=== PATIENT | male | born 1995 | race African-American/Black ===

== ENCOUNTER 2022-03-01 22:53 | Emergency (ER) | payer OTHER, SELFPAY ==
[2022-03-01 23:51] VITALS: BP 126/76; PULSE 87; RESP 18; TEMP 38.1; O2SAT 99
[2022-03-02 01:47] VITALS: PULSE 87; RESP 16; O2SAT 97
[2022-03-02 02:02] VITALS: BP 126/80
--- NOTE | 2022-03-02 02:15 | ED.EXTPRO ---
HPI - Extremity Problem General Chief complaint: Extremity Problem,Nontraumatic Stated complaint: right arm wound Time Seen by Provider: 03/02/22 02:08 History of Present Illness HPI Narrative: 27-year-old male here for evaluation of a lesion to his right wrist that he first noticed about 2 days ago. Patient is unsure if he got bit by a spider, but first noticed a lesion on his wrist that has since grown. He also noted some red streaking up his arm that came on today which prompted his ED evaluation. Patient denies fevers at home but temperature noted to be 100.5 in triage. Denies any nausea, vomiting, diarrhea, constipation or weakness. Related Data Allergies Allergy/AdvReac Type Severity Reaction Status Date / Time No Known Allergies Allergy Verified 03/02/22 01:39 Review of Systems Review of Systems: Gen: Denies fevers or chills Eyes: Denies eye pain or visual change ENT: Denies congestion Respiratory: Denies shortness of breath or cough CV: Denies chest pain or palpitations GI: Reports abdominal pain nausea, emesis or diarrhea : denies burning, urgency, frequency or hematuria Musculoskeletal: Denies back pain or muscle pain Neuro: Denies numbness, tingling, weakness or focal weakness Skin: Reports right wrist lesion 10 point review of systems negative, other than as per history of present illness, past medical history and other positives and review of systems Exam Narrative: APPEARANCE: Well appearing, no pain in distress, well-nourished. Head: Normocephalic and atraumatic. EYES: PERRLA/EOMI, conjunctivae clear NOSE: No nasal drainage EARS: External ear normal in appearance THROAT: Oropharynx is clear. Mucous membranes are moist. NECK: Supple. No adenopathy, no masses. RESPIRATORY: Airway patent, respirations nonlabored. Clear to auscultation bilaterally, no rales, rhonchi, wheezing. CARDIOVASCULAR: Regular rate and rhythm without murmurs, rubs, or gallops. ABDOMINAL: Normoactive bowel sounds. Soft, nontender, nondistended. No rebound tenderness or guarding. MUSCULOSKELETAL: Extremities are warm and well-perfused. Moves all extremities well. No edema. NEURO: Normal speech. No focal neurologic deficits. SKIN: Patient has a 1 x 0.5 cm raised erythematous lesion to the right wrist with erythematous streaking up the arm just proximal to the AC joint. PSYCHIATRIC: Normal affect/mood. Course Vital Signs Vital signs: Vital Signs Temperature 100.5 F H 03/01/22 23:51 Pulse Rate 87 03/01/22 23:51 Respiratory Rate 18 03/01/22 23:51 Blood Pressure 126/76 03/01/22 23:51 Pulse Oximetry 99 03/01/22 23:51 Oxygen Delivery Room Air 03/01/22 23:51 Temperature 99.6 F 03/02/22 02:31 Pulse Rate 87 03/02/22 01:47 Respiratory Rate 16 03/02/22 01:47 Blood Pressure 126/80 03/02/22 02:02 Pulse Oximetry 97 03/02/22 01:47 Oxygen Delivery Room Air 03/01/22 23:51 MDM - Extremity (Nontraumatic) MDM Narrative Medical decision making narrative: 27-year-old male here for evaluation of a lesion to his right wrist with some streaking up the arm consistent with lymphangitis. He is nontoxic-appearing and denies any systemic symptoms though he was noted to have a temperature of 100.5 in triage, improved with Tylenol. His white count is normal, his lactic is normal, no signs of a severe infection. Considered cellulitis, lymphangitis, doubt sporotrichosis. The area of cellulitis was marked in the ED, patient instructed to return to the ED if this is getting worse or not improving with the oral antibiotics. Patient was given a gram of Ancef given IV and will be discharged home with oral antibiotics. He was given return precautions and he voiced understanding. Lab Data Result diagrams: 03/02/22 02:32 03/02/22 02:32 Labs: Lab Results 03/02/22 03/02/22 03/02/22 Range/Units 02:32 02:32 02:32 WBC 8.6 (4.5-10.0) K/mm3 RBC 4.79 (4.6-6.20) M/mm3 Hgb 14.4 (14.
[2022-03-02 02:31] VITALS: TEMP 37.6
[2022-03-02] MEDS: ACETAMINOPHEN 325 MG TABLET 650 MG PO (02:31)
[2022-03-02 02:38] LABS: Basophils Absolute Auto 0.1 K/mm3 (0.0-0.1); Basophils Percent Auto 0.6 % (0.2-1.2); Eosinophils Absolute Auto 0.1 K/mm3 (0-0.3); Eosinophils Percent Auto 0.9 % (0-4.4); Hematocrit 42.1 % (42.0-52.0); Hemoglobin 14.4 g/dL (14.0-18.0); Immature Granulocyte Absolute 0.03 K/mm3 (0.00-0.031); Immature Granulocyte Percent A 0.3 % (0-0.5); Lymphocytes Absolute Auto 1.51 K/mm3 (0.9-3.2); Lymphocytes Percent Auto 17.6 % (18.3-44.2); Mean Corpuscular HGB Conc 34.2 g/dl (32-36); Mean Corpuscular Hemoglobin 30.1 pg (26-34); Mean Corpuscular Volume 87.9 fl (80-100); Mean Platelet Volume 9.8 fl (7.4-10.4); Monocytes Absolute Auto 1.1 K/mm3 (0.1-0.6); Monocytes Percent Auto 12.2 % (2.6-8.5); Neutrophils Absolute Auto 5.9 K/mm3 (1.3-6.7); Neutrophils Percent Auto 68.4 % (45.5-73.1); Platelet Count Result 210 k/mm3 (150-375); Red Blood Count 4.79 M/mm3 (4.6-6.20); Red Cell Distribution Width 11.4 % (11.5-14.5); White Blood Count 8.6 K/mm3 (4.5-10.0)
[2022-03-02 02:50] LABS: Alanine Aminotransferase 33 U/L (6-50); Albumin Level 4.8 g/dL (3.5-5.1); Alkaline Phosphatase 63 U/L (38-126); Anion Gap 12 mmol/L (8-16); Aspartate Amino Transferase 32 U/L (17-59); Blood Urea Nitrogen 14 mg/dL (9-20); Calcium 9.3 mg/dL (8.4-10.2); Carbon Dioxide 24 mmol/L (22-30); Chloride 102 mmol/L (98-107); Estimated CRCL calculation 76 ml/min; Estimated Glomerular Filt Rate > 60; Glucose 113 mg/dL (65-110); Lactic Acid Reflex 0.9 mmol/L (0.7-2.0); Potassium 3.6 mmol/L (3.4-5.0); Sodium 138 mmol/L (137-145)
[2022-03-02 04:10] VITALS: BP 103/56; PULSE 61; RESP 15; O2SAT 100
== END 2022-03-02 04:14 | disposition home or self-care (01) ==
PROVIDERS: Physician Assistant; Emergency Provider Emergency Medicine
DX: L03.113 Cellulitis of right upper limb (principal)
CPT/HCPCS: 36415; 80053; 83605; 85025; 96365; 99284; A9270; J0690

== ENCOUNTER 2022-07-06 18:42 | Emergency (ER) | payer OTHER, SELFPAY ==
[2022-07-06 18:47] VITALS: BP 126/69; PULSE 80; RESP 17; TEMP 37.7; O2SAT 98
--- NOTE | 2022-07-06 19:55 | ED.GENADULT ---
HPI - General Adult General Chief complaint: Skin/Abscess/Foreign Body Stated complaint: rash on arm Time Seen by Provider: 07/06/22 19:19 History of Present Illness HPI narrative: 27-year-old male here for evaluation of a rash to his right wrist noticed yesterday. States that the lesion came on without obvious triggers and has since spread proximally. He denies any soaps, medications, detergents. He was seen here in February for identical signs and symptoms and was treated for cellulitis with improvement of his symptoms. He denies any fevers or chills, nausea or vomiting or systemic symptoms. Related Data Allergies Allergy/AdvReac Type Severity Reaction Status Date / Time No Known Allergies Allergy Verified 03/02/22 01:39 Review of Systems Review of Systems: Gen.: Denies fevers or chills Eyes: Denies eye pain or visual change ENT: Denies congestion Respiratory: Denies shortness of breath or cough CV: Denies chest pain or palpitations GI: Denies abdominal pain nausea, emesis or diarrhea denies burning, urgency, frequency or hematuria Musculoskeletal: Denies back pain or muscle pain Neuro: Denies numbness, tingling, weakness or focal weakness Skin: Reports rash to right wrist Except as documented, all other systems reviewed and negative Exam Narrative: APPEARANCE: Well appearing, no pain in distress, well-nourished. Head: Normocephalic and atraumatic. EYES: PERRLA/EOMI, conjunctivae clear NOSE: No nasal drainage EARS: External ear normal in appearance THROAT: Oropharynx is clear. Mucous membranes are moist. NECK: Supple. No adenopathy, no masses. RESPIRATORY: Airway patent, respirations nonlabored. Clear to auscultation bilaterally, no rales, rhonchi, wheezing. CARDIOVASCULAR: Regular rate and rhythm without murmurs, rubs, or gallops. ABDOMINAL: Normoactive bowel sounds. Soft, nontender, nondistended. No rebound tenderness or guarding. MUSCULOSKELETAL: Extremities are warm and well-perfused. Moves all extremities well. No edema. NEURO: Normal speech. No focal neurologic deficits. SKIN: patient has a cluster of 5 pustules to the dorsal aspect of his right wrist on an erythematous base, has a streak of erythema going proximally that is warm and tender to palpation. PSYCHIATRIC: Normal affect/mood. Course Vital Signs Vital signs: Vital Signs Temperature 99.9 F H 07/06/22 18:47 Pulse Rate 80 07/06/22 18:47 Respiratory Rate 17 07/06/22 18:47 Blood Pressure 126/69 07/06/22 18:47 Pulse Oximetry 98 07/06/22 18:47 Temperature 99.5 F 07/06/22 20:56 Pulse Rate 80 07/06/22 18:47 Respiratory Rate 17 07/06/22 18:47 Blood Pressure 126/69 07/06/22 18:47 Pulse Oximetry 98 07/06/22 18:47 Medical Decision Making MDM Narrative Medical decision making narrative: 27-year-old male here for evaluation of an area of cellulitis on his right upper extremity with what appears to be lymphangitis. Patient is nontoxic-appearing, he does have a low-grade temp at 99.9 which improved after Tylenol. His white count is normal and his lactic acid is negative. Given lymphangitis he was given a dose of IV antibiotics. He will be discharged home with doxycycline to cover for MRSA. Patient did have identical episode in February when I saw him, does note clinical improvement with antibiotic course. Given recurrence, will provide with dermatology follow-up. Return precautions discussed and he voiced understanding. Vital Signs Vital Signs: Vital Signs Temperature 99.9 F H 07/06/22 18:47 Pulse Rate 80 07/06/22 18:47 Respiratory Rate 17 07/06/22 18:47 Blood Pressure 126/69 07/06/22 18:47 Pulse Oximetry 98 07/06/22 18:47 Temperature 99.5 F 07/06/22 20:56 Pulse Rate 80 07/06/22 18:47 Respiratory Rate 17 07/06/22 18:47 Blood Pressure 126/69 07/06/22 18:47 Pulse Oximetry 98 07/06/22 18:47 Lab Data 07/06/22 19:59 07/06/22 19:59 Labs: Lab Res
[2022-07-06 20:04] LABS: Basophils Percent Auto 0.3 % (0.2-1.2); Eosinophils Absolute Auto 0.2 K/mm3 (0-0.3); Eosinophils Percent Auto 3.3 % (0-4.4); Hematocrit 43.9 % (42.0-52.0); Hemoglobin 15.2 g/dL (14.0-18.0); Immature Granulocyte Absolute 0.02 K/mm3 (0.00-0.031); Immature Granulocyte Percent A 0.3 % (0-0.5); Lymphocytes Percent Auto 27.4 % (18.3-44.2); Mean Corpuscular HGB Conc 34.6 g/dl (32-36); Mean Corpuscular Hemoglobin 30.1 pg (26-34); Mean Corpuscular Volume 86.9 fl (80-100); Mean Platelet Volume 9.6 fl (7.4-10.4); Monocytes Absolute Auto 0.6 K/mm3 (0.1-0.6); Monocytes Percent Auto 9.8 % (2.6-8.5); Neutrophils Absolute Auto 3.4 K/mm3 (1.3-6.7); Neutrophils Percent Auto 58.9 % (45.5-73.1); Platelet Count Result 225 k/mm3 (150-375); Red Blood Count 5.05 M/mm3 (4.6-6.20); Red Cell Distribution Width 11.5 % (11.5-14.5); White Blood Count 5.8 K/mm3 (4.5-10.0)
[2022-07-06] MEDS: ACETAMINOPHEN 325 MG TABLET 650 MG PO (20:07)
[2022-07-06 20:14] LABS: Anion Gap 9 mmol/L (8-16); Blood Urea Nitrogen 12 mg/dL (9-20); Calcium 8.9 mg/dL (8.4-10.2); Carbon Dioxide 25 mmol/L (22-30); Chloride 100 mmol/L (98-107); Estimated CRCL calculation 84 ml/min; Estimated Glomerular Filt Rate > 60; Glucose 90 mg/dL (65-110); Potassium 3.6 mmol/L (3.4-5.0); Sodium 134 mmol/L (137-145)
[2022-07-06 20:15] LABS: Lactic Acid Reflex 1.1 mmol/L (0.7-2.0)
[2022-07-06 20:56] VITALS: TEMP 37.5
== END 2022-07-06 21:00 | disposition home or self-care (01) ==
LOC: ANHED 20:58
PROVIDERS: Emergency Provider Physician Assistant
DX: L03.113 Cellulitis of right upper limb (principal)
CPT/HCPCS: 36415; 80048; 83605; 85025; 96365; 99284; A9270; J0690

== ENCOUNTER 2022-10-06 09:41 | Emergency (ER) | payer OTHER, SELFPAY ==
[2022-10-06 09:50] VITALS: BP 127/66; PULSE 85; RESP 12; TEMP 37.3; O2SAT 100
--- NOTE | 2022-10-06 10:25 | ED.EYEPROB ---
HPI - Eye Problem General Chief complaint: Eye Problems Stated complaint: Left Eye Irritation Time Seen by Provider: 10/06/22 10:18 Source: patient and RN notes reviewed Mode of arrival: ambulatory Limitations: no limitations History of Present Illness HPI Narrative: Patient presents today complaining of left eye redness and crusting this morning upon waking. Denies itching, pain, vision changes. Denies any additional symptoms. Denies any sick contacts. Related Data Allergies Allergy/AdvReac Type Severity Reaction Status Date / Time No Known Allergies Allergy Verified 10/06/22 09:48 Review of Systems Review of Systems: CONSTITUTIONAL: Denies body aches, fever, chills, or sweats. EYES: Denies visual changes. + left eye redness and crusting ENT: Denies rhinorrhea, congestion, sore throat, or otalgia. CARDIOVASCULAR: Denies chest pain, palpitations, or edema. RESPIRATORY: Denies cough or dyspnea. GASTROINTESTINAL: Denies abdominal pain, nausea, vomiting, or diarrhea. GENITOURINARY: Denies dysuria or hematuria. SKIN: Denies rash, itching, or wounds. MUSCULOSKELETAL: Denies back pain, joint pain, or myalgia. NEUROLOGIC: Denies headache, numbness, tingling, or weakness. PSYCH: Denies depression or anxiety. PMFSH Comments At time of signature, I have reviewed and agree with nursing past medical, surgical, social and family history unless otherwise noted. Please see nursing chart for further information. There is no relevant family history pertinent to the presenting complaint Exam Narrative: GENERAL: Well-appearing, well-nourished, and in no acute distress. HEAD: Normocephalic, atraumatic. EYES: EOMI. PERRL. Right eye normal. Left eye with injected conjunctivae and green crusting on the eyelashes. Upper eyelid mildly edematous. ENT: Mucous membranes pink and moist. NECK: Normal AROM. CHEST: No respiratory distress. EXTREMITIES: Normal range of motion. No edema. SKIN: Warm, dry, no rash. Capillary refill normal. Normal skin turgor. NEURO: No focal deficits. Alert and oriented x3. Gait steady. PSYCH: Normal affect. No signs of depression or anxiety. Course Course Level of Care: Express Care Visit Vital Signs Vital signs: Vital Signs Temperature 99.1 F 10/06/22 09:50 Pulse Rate 85 10/06/22 09:50 Respiratory Rate 12 10/06/22 09:50 Blood Pressure 127/66 10/06/22 09:50 Pulse Oximetry 100 10/06/22 09:50 Temperature 99.1 F 10/06/22 09:50 Pulse Rate 85 10/06/22 09:50 Respiratory Rate 12 10/06/22 09:50 Blood Pressure 127/66 10/06/22 09:50 Pulse Oximetry 100 10/06/22 09:50 Reviewed. Pt has been instructed to follow up with his PCP regarding his elevated blood pressure today. MDM - Eye Problem MDM Narrative Medical decision making narrative: Symptoms consistent with bacterial conjunctivitis. Will treat with Polytrim. Anticipatory guidance given. Differential Diagnosis Differential diagnosis: Likely corneal abrasion, conjunctivitis and periorbital cellulitis Critical Care Time Critical Care Time Critical Care Time: No Discharge Plan Discharge Clinical Impression: Acute bacterial conjunctivitis of left eye Patient Disposition: Home, Self-Care Condition: Stable Instructions: Conjunctivitis (ED) Additional Instructions: Please use the eyedrops as directed. Wash her hands frequently as to not spread it to the other eye. Follow-up with your PCP or eye doctor in 3 days if symptoms are not improving. Your blood pressure was elevated above 120/80 today at Urgent Care. This puts you above the threshold for follow up. Please schedule a followup visit with your personal physician as soon as possible, for further evaluation and treatment. Even blood pressure exceeding 120/80 may indicate pre-hypertension. Prescriptions: New polymyxin B sulf-trimethoprim [Polytrim] 10,000 unit- 1 mg/mL drops 1 drp EACH EYE Q3H 7 Days Qty: 10 0RF Rx I
== END 2022-10-06 10:33 | disposition home or self-care (01) ==
PROVIDERS: Emergency Provider Nurse Practitioner; PCP Family Medicine
DX: H10.32 Unspecified acute conjunctivitis, left eye (principal)
CPT/HCPCS: 99213; G0463

== ENCOUNTER 2023-01-11 09:00 | Emergency (ER) | payer OTHER, SELFPAY ==
[2023-01-11 09:08] VITALS: BP 116/75; PULSE 74; RESP 16; TEMP 36.7; O2SAT 100
--- NOTE | 2023-01-11 09:21 | ED.SKABFB ---
HPI - Skin/Abscess/Foreign Bdy General Chief complaint: Skin/Abscess/Foreign Body Stated complaint: Rash Time Seen by Provider: 01/11/23 09:21 Source: patient Mode of arrival: ambulatory Limitations: no limitations History of Present Illness HPI narrative: 19 presented for complaint rash to the right wrist since yesterday. He endorses this is the 3rd occurrence of this rash, and wanted to get treatment before symptoms worsen. He was seen and treated 06/2022 and 03/04 for the same, given doxycycline with resolution of symptoms. He was given Dermatology follow-up but has yet to do so. He denies pain, drainage, or itching to the site. Patient provided pictures which show progression to pustules and cellulitis the last time. Denies any other locations of rash. Denies lip, tongue, or throat swelling, shortness of breath or wheezing. Denies changes to soap, detergent, lotion, or any other exposures. No one else in the house or any contacts with similar symptoms. Related Data Allergies Allergy/AdvReac Type Severity Reaction Status Date / Time No Known Allergies Allergy Verified 01/11/23 09:08 Review of Systems Review of Systems: CONSTITUTIONAL: Denies body aches, fever, chills, or sweats. EYES: Denies visual changes, redness, or discharge. ENT: Denies rhinorrhea, congestion CARDIOVASCULAR: Denies chest pain, palpitations, or edema. RESPIRATORY: Denies cough or dyspnea. GASTROINTESTINAL: Denies abdominal pain, nausea, vomiting, or diarrhea. SKIN: Reports rash to right wrist MUSCULOSKELETAL: Denies back pain, joint pain, or myalgia. NEUROLOGIC: Denies headache, numbness, tingling, or weakness. [facility] Past Medical History Medical History (Updated 01/11/23 @ 09:38 by Caren Bonds, DAVID) No pertinent past medical history Comments At time of signature, I have reviewed and agree with nursing past medical, surgical, social and family history unless otherwise noted. Please see nursing chart for further information. There is no relevant family history pertinent to the presenting complaint Exam Narrative: GENERAL: Well-appearing HEAD: Normocephalic, atraumatic. EYES: conjunctivae clear, and EOMI. ENT: Mucous membranes moist. Oropharynx without edema, erythema or lesions. NECK: Supple. No lymphadenopathy CHEST: Clear to auscultation. HEART: Regular rate and rhythm. SKIN: Warm, dry. cluster of papules to the dorsal aspect of his right wrist on an erythematous base; nontender; no surrounding induration or swelling, no fluctuance or drainage. Full ROM to wrist. NEURO: Alert and oriented x3. Course Course Emergency Course: Patient is aware of diagnosis, understands and agrees to treatment plan. Anticipatory guidance given. Patient agrees to follow-up as directed and is aware of reasons to seek care at the emergency department. Portions of this record may have been created with voice recognition software Level of Care: Express Care Visit Vital Signs Vital signs: Vital Signs Temperature 98.1 F 01/11/23 09:08 Pulse Rate 74 01/11/23 09:08 Respiratory Rate 16 01/11/23 09:08 Blood Pressure 116/75 01/11/23 09:08 Pulse Oximetry 100 01/11/23 09:08 Oxygen Delivery Room Air 01/11/23 09:08 Temperature 98.1 F 01/11/23 09:08 Pulse Rate 74 01/11/23 09:08 Respiratory Rate 16 01/11/23 09:08 Blood Pressure 116/75 01/11/23 09:08 Pulse Oximetry 100 01/11/23 09:08 Oxygen Delivery Room Air 01/11/23 09:08 Reviewed MDM - Skin/Abscess/Foreign Bdy MDM Narrative Medical decision making narrative: Patient presented for recurrence for rash to right wrist without apparent cellulitis or pustules. discussed physical exam findings and Rx's. Advised supportive measures and signs/symptoms to go to the ER. Pt is appropriate for outpt treatment and f/u. Provided derm contact. Instructed patient to go to nearest ER immediately for any worsening symptoms including but not limited to: fever,
== END 2023-01-11 09:38 | disposition home or self-care (01) ==
PROVIDERS: Emergency Provider Nurse Practitioner Family; PCP Family Medicine
DX: L30.9 Dermatitis, unspecified (principal)
CPT/HCPCS: 99213; G0463

== ENCOUNTER 2023-05-03 10:53 | Emergency (ER) | payer OTHER, SELFPAY ==
[2023-05-03 11:02] VITALS: BP 129/82; PULSE 85; RESP 16; TEMP 37.7; O2SAT 99
--- NOTE | 2023-05-03 11:10 | ED.GENADULT ---
HPI - General Adult General Chief complaint: Extremity Injury, Upper Stated complaint: Right Wrist Pain Time Seen by Provider: 05/03/23 11:10 Source: patient, RN notes reviewed and old records reviewed Mode of arrival: ambulatory Limitations: no limitations History of Present Illness HPI narrative: 28-year-old male presents to the [facility] with complaints of a wound to the right wrist volar aspect. Symptoms started Tuesday, 3 days ago Has a history of the same rash. Blister to the area. Denies any valdez. States it tingles, valdez at times. Has not seen his doctor. 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 Has been seen here for for the same symptoms Related Data Allergies Allergy/AdvReac Type Severity Reaction Status Date / Time No Known Allergies Allergy Verified 05/03/23 11:08 Review of Systems Review of Systems: All systems reviewed & are unremarkable except as noted in HPI and below Constitutional: Constitutional: Reports no additional constitutional complaints Eyes: Eyes: Reports no additional eye complaints ENT: Reports system reviewed and no additional complaints, except as documented Cardiovascular: Cardiovascular: Reports no additional cardiovascular complaints, Denies chest pain and Denies dyspnea Respiratory: Respiratory: Reports no additional respiratory complaints, Denies chest congestion, Denies cough and Denies dyspnea Gastrointestinal: Gastrointestinal: Reports no additional gastrointestinal complaints, Denies abdominal pain, Denies nausea and Denies vomiting Musculoskeletal: Musculoskeletal: Reports no additional musculoskeletal complaints Integumentary/Breasts: Skin/Breast: Reports as per HPI, Reports new lesions, Reports erythema and Reports sores Neurologic: Reports system reviewed and no additional complaints, except as documented Psychiatric: Psychiatric: Reports no additional psychiatric complaints Allergic/Immunologic: Allergic/Immunologic: Reports no additional allergic/immunologic complaints [facility] Past Medical History Medical History No pertinent past medical history Comments At the time of my signature, I reviewed and agree with the nursing past medical, surgical, social, and family history. There is no relevant family history pertinent to the patient complaint. Exam Const: General: cooperative, healthy appearing, comfortable, no acute distress, well developed, alert and well nourished Nutritional Appearance: well nourished Orientation/consciousness: patient oriented x3 Limitations: no limitations HENMT: Head: normal to inspection Ears: hearing grossly normal bilaterally and external ears normal Face/Nose/Sinus: Normal external nose present, Normal nares present, Normal nasal mucous membranes and turbinates present, normal facial exam and face symmetric Face and sinus: normal facial exam and face symmetric Mouth: Yes lip normal and Yes moist mucous membranes Eyes: General: appearance normal, both eyes and all related structures Alignment and Position: alignment normal Periorbital: periorbital findings normal Pupils: Equal, round and reactive pupils present EOM: EOMs intact bilaterally Neck: Neck: normal visual inspection, full ROM, no lymphadenopathy and no meningeal signs Chest: Chest palpation & inspection: normal inspection of the chest Resp: Effort & Inspection: normal respiratory effort and able to speak in complete sentences Auscultation: clear to auscultation bilaterally, no crackles, no rales, no rhonchi and no wheezes Cardio: Rate: regular rate Rhythm: regular rhythm Back/Spine/Pelvis: Cervical Spine: cervical ROM normal Skin: General skin exam: normal color and no rashes or lesions noted Rashes: no rashes Wounds: no wounds Other: Right volar aspect wrist, 3 cm diameter redness, blister in the center. Warm to touch. Full range of motion of the hand, strong chief talent officer. Sensation i
== END 2023-05-03 11:30 | disposition home or self-care (01) ==
PROVIDERS: Emergency Provider Nurse Practitioner; PCP Family Medicine
DX: L30.9 Dermatitis, unspecified (principal)
CPT/HCPCS: 99213; G0463

== ENCOUNTER 2023-12-20 08:52 | Emergency (ER) | payer OTHER, SELFPAY ==
[2023-12-20 09:02] VITALS: BP 135/74; PULSE 82; RESP 16; TEMP 36.7; O2SAT 100
--- NOTE | 2023-12-20 09:19 | ED.SKABFB ---
HPI - Skin/Abscess/Foreign Bdy General Chief complaint: Skin/Abscess/Foreign Body Stated complaint: bumps on right wrist Time Seen by Provider: 12/20/23 09:25 Source: patient and RN notes reviewed Mode of arrival: ambulatory Limitations: no limitations History of Present Illness HPI narrative: 28-year-old male presents with concern of for bumps on his right wrist that her pain. He reports this is a recurrent problem, this is the 5th time he has been seen in the urgent care or ER for this problem. He denies any fever body aches chills or sweats. He denies any drainage from the area. Each time he has been treated with doxycycline and the pros and that resolved the area. He reports on the 1st occasion he had cellulitis that streak up his arm. MD complaint: rash Related Data Allergies Allergy/AdvReac Type Severity Reaction Status Date / Time No Known Allergies Allergy Verified 12/20/23 09:06 Review of Systems Review of Systems: CONSTITUTIONAL: Denies malaise, chills, sweats, or fever. EYES: Denies redness, or discharge. ENT: Denies rhinorrhea, congestion, swollen lips, swollen tongue CARDIOVASCULAR: Denies chest pain, palpitations, or edema. RESPIRATORY: Denies cough or dyspnea. GASTROINTESTINAL: Denies abdominal pain, nausea, vomiting SKIN: Reports painful bumps on his right wrist MUSCULOSKELETAL: Denies joint pain or myalgia. NEUROLOGIC: Denies headache. All systems reviewed & are unremarkable except as noted in HPI and below PMFSH Past Medical History Medical History No pertinent past medical history Comments At time of signature, agree with nursing past medical, surgical, social and family history. There is no relevant family history pertinent to the presenting complaint Exam Narrative: GENERAL: Well-appearing, well-nourished, and in no acute distress. HEAD: Normocephalic, atraumatic. EYES: PERRLA, conjunctivae clear, and EOMI. ENT: Mucous membranes moist. Oropharynx without edema, erythema or lesions. NECK: Supple. No lymphadenopathy CHEST: Clear to auscultation. No respiratory distress. HEART: Regular rate and rhythm. SKIN: Warm, dry. Patch of vesicles noted to the right dorsal wrist with surrounding erythema, no edema, no induration, no drainage. NEURO: Alert and oriented x3. PSYCH: Normal mood and affect Course Course Emergency Course: Although this rash appears vesicular, possibly viral or herpes zoster, because of the patient's history with this and successful treatment with doxycycline I will prescribe the same treatments he had in the past. Patient is aware of diagnosis, understands and agrees to treatment plan. Anticipatory guidance given. Patient agrees to follow-up as directed and is aware of reasons to seek care at the emergency department. Portions of this record may have been created with voice recognition software Level of Care: Express Care Visit Vital Signs Vital signs: Vital Signs Temperature 98.1 F 12/20/23 09:02 Pulse Rate 82 12/20/23 09:02 Respiratory Rate 16 12/20/23 09:02 Blood Pressure 135/74 12/20/23 09:02 Pulse Oximetry 100 12/20/23 09:02 Oxygen Delivery Room Air 12/20/23 09:02 Temperature 98.1 F 12/20/23 09:02 Pulse Rate 82 12/20/23 09:02 Respiratory Rate 16 12/20/23 09:02 Blood Pressure 135/74 12/20/23 09:02 Pulse Oximetry 100 12/20/23 09:02 Oxygen Delivery Room Air 12/20/23 09:02 Reviewed. MDM - Skin/Abscess/Foreign Bdy MDM Narrative Medical decision making narrative: Does not appear at this time to be erythema multiforme, bullous, SJS, TEN; no evidence at this time to suggest RMSF, endocarditis or Lyme disease; patient looks well, nontoxic and is tolerating oral intake; no neurologic signs or symptoms; no headache, photophobia or neck pain; afebrile; appropriate for initial outpatient treatment; discussed the importance of follow-up, patient agrees; question, maddy
== END 2023-12-20 09:38 | disposition home or self-care (01) ==
PROVIDERS: Emergency Provider Nurse Practitioner; PCP Family Medicine
DX: R21 Rash and other nonspecific skin eruption (principal)
CPT/HCPCS: 99213; G0463